=== PATIENT | female | born 1990 | race American Indian/Alaskan Native ===

== ENCOUNTER 2021-04-14 17:21 | Emergency (ER) | payer OTHER ==
--- NOTE | 2021-04-14 18:24 | Emergency Department Report ---
ED General Adult HPI - General Stated complaint: VAGINAL BLEEDING Time Seen by Provider: 04/14/21 18:19 - History of Present Illness Initial comments: 30-year-old -[place] female patient presents with complaints of vaginal bleeding in for the past 2 weeks. She states her last cycle was 03/31/2021. She reports 3+ test over the past 5 days. Patient is currently following with an PAINTER SKI EDGE and is scheduled to see him in 2 days. She is A6. She admits to mild lower abdominal cramping and urinary frequency without dysuria/hematuria, vaginal discharge/dyspareunia, or fever/chills/sweats. Past surgical history includes removal of both fallopian tube for an ectopic -: Sudden - Related Data Previous Rx's Medication Instructions Recorded Last Taken Type Ibuprofen [Motrin 800 MG tab] 800 mg PO Q8HR PRN #20 tablet 04/14/21 Unknown Rx Oxycodone HCl/Acetaminophen 1 each PO Q6H PRN #15 tablet 04/14/21 Unknown Rx [Oxycodone-Acetaminophen 10-325] Allergies Allergy/AdvReac Type Severity Reaction Status Date / Time No Known Allergies Allergy Verified 04/14/21 20:40 ED Review of Systems ROS: Stated complaint: VAGINAL BLEEDING Other details as noted in HPI Constitutional: denies: chills, diaphoresis, fever, malaise, weakness Respiratory: denies: cough, shortness of breath Cardiovascular: denies: chest pain Gastrointestinal: as per HPI. denies: nausea, vomiting Genitourinary: frequency. denies: urgency, dysuria, hematuria, discharge Neurological: denies: headache Hematological/Lymphatic: denies: easy bleeding ED Past Medical Hx - Medications Home Medications: Home Medications Medication Instructions Recorded Confirmed Last Taken Type Ibuprofen [Motrin 800 MG tab] 800 mg PO Q8HR PRN #20 tablet 04/14/21 Unknown Rx Oxycodone HCl/Acetaminophen 1 each PO Q6H PRN #15 tablet 04/14/21 Unknown Rx [Oxycodone-Acetaminophen 10-325] ED Physical Exam - General General appearance: alert, in no apparent distress - Head Head exam: Present: atraumatic, normocephalic - Eye Eye exam: Present: normal appearance - Respiratory Respiratory exam: Present: normal lung sounds bilaterally. Absent: respiratory distress - Cardiovascular Cardiovascular Exam: Present: regular rate, normal rhythm - GI/Abdominal GI/Abdominal exam: Present: soft, normal bowel sounds. Absent: distended, guarding, rebound, rigid - Extremities Exam Extremities exam: Present: full ROM - Back Exam Back exam: Absent: CVA tenderness (R), CVA tenderness (L) - Neurological Exam Neurological exam: Present: alert, oriented X3 - Psychiatric Psychiatric exam: Present: normal affect, normal mood - Skin Skin exam: Present: warm, dry, intact, normal color. Absent: rash ED Course Vital Signs 04/14/21 04/14/21 04/14/21 18:28 20:51 21:16 Temperature 98.4 F 97 F L Pulse Rate 73 86 Respiratory 20 18 18 Rate Blood Pressure 110/72 118/83 [Right] O2 Sat by Pulse 98 98 Oximetry 04/14/21 04/14/21 04/14/21 21:18 21:20 22:02 Temperature Pulse Rate 65 Respiratory 18 18 16 Rate Blood Pressure 99/66 [Right] O2 Sat by Pulse 100 Oximetry ED Medical Decision Making - Lab Data Result diagrams: 04/14/21 18:26 04/14/21 18:26 Lab Results 04/14/21 04/14/21 04/14/21 Range/Units 18:26 18:26 18:26 WBC 6.6 (4.5-11.0) K/mm3 RBC 4.02 (3.65-5.03) M/mm3 Hgb 11.7 (10.1-14.3) gm/dl Hct 33.7 (30.3-42.9) % MCV 84 (79-97) fl MCH 29 (28-32) pg MCHC 35 H (30-34) % RDW 13.9 (13.2-15.2) % Plt Count 261 (140-440) K/mm3 Lymph % (Auto) 28.6 (13.4-35.0) % [place] % (Auto) 10.0 H (0.0-7.3) % Eos % (Auto) 0.7 (0.0-4.3) % Baso % (Auto) 0.7 (0.0-1.8) % Lymph # (Auto) 1.9 (1.2-5.4) K/mm3 [place] # (Auto) 0.7 (0.0-0.8) K/mm3 Eos # (Auto) 0.0 (0.0-0.4) K/mm3 Baso # (Auto) 0.0 (0.0-0.1) K/mm3 Seg Neutrophils % 60.0 (40.0-70.0) % Seg Neutrophils # 3.9 (1.8-7.7) K/mm3 Sodium 136 L (137-145) mmol/L Potassium 4.4 (3.6-5.0) mmol/L Chloride 102.3 (98-107) mmol/L Carbon Dioxide 23 (22-30) mmol/L Anion Gap 15 mmol/L BUN 7 (7-17) mg/dL Creatinine 0.5 L (0.6-1.2) mg/dL Estimated GFR > 60 ml/min BUN/Creatinine Ratio 14 % Glucose 95 (65-100) mg/dL Calcium 9.4 (8.4-10.2) mg/dL Total Bilirubin 0.20 (0.1-1.2) mg/dL AST 15 (5-40) units/L ALT 7 (7-56) units/L Alkaline Phosphatase 68 (35-129) units/L Total Protein 7.7 (6.3-8.2) g/dL Albumin 4.2 (3.9-5) g/dL Albumin/Globulin Ratio 1.2 % HCG, Quant 7747 H (0-4) mIU/mL Urine Color (Yellow) Urine Turbidity (Clear) Urine pH (5.0-7.0) Ur Specific [place] (1.003-1.030) Urine Protein (Negative) mg/dL Urine Glucose (UA) (Negative) mg/dL Urine Ketones (Negative) mg/dL Urine Blood (Negative) Urine Nitrite (Negative) Urine Bilirubin (Negative) Urine Urobilinogen (<2.0) mg/dL Ur Leukocyte Esterase (Negative) Urine WBC (Auto) (0.0-6.0) /HPF Urine RBC (Auto) (0.0-6.0) /HPF U Epithel Cells (Auto) (0-13.0) /HPF Urine Bacteria (Auto) (Negative) /HPF Urine Mucus /HPF Blood Type 04/14/21 04/14/21 Range/Units 18:36 20:20 WBC (4.5-11.0) K/mm3 RBC (3.65-5.03) M/mm3 Hgb (10.1-14.3) gm/dl Hct (30.3-42.9) % MCV (79-97) fl MCH (28-32) pg MCHC (30-34) % RDW (13.2-15.2) % Plt Count (140-440) K/mm3 Lymph % (Auto) (13.4-35.0) % [place] % (Auto) (0.0-7.3) % Eos % (Auto) (0.0-4.3) % Baso % (Auto) (0.0-1.8) % Lymph # (Auto) (1.2-5.4) K/mm3 [place] # (Auto) (0.0-0.8) K/mm3 Eos # (Auto) (0.0-0.4) K/mm3 Baso # (Auto) (0.0-0.1) K/mm3 Seg Neutrophils % (40.0-70.0) % Seg Neutrophils # (1.8-7.7) K/mm3 Sodium (137-145) mmol/L Potassium (3.6-5.0) mmol/L Chloride (98-107) mmol/L Carbon Dioxide (22-30) mmol/L Anion Gap mmol/L BUN (7-17) mg/dL Creatinine (0.6-1.2) mg/dL Estimated GFR ml/min BUN/Creatinine Ratio % Glucose (65-100) mg/dL Calcium (8.4-10.2) mg/dL Total Bilirubin (0.1-1.2) mg/dL AST (5-40) units/L ALT (7-56) units/L Alkaline Phosphatase (35-129) units/L Total Protein (6.3-8.2) g/dL Albumin (3.9-5) g/dL Albumin/Globulin Ratio % HCG, Quant (0-4) mIU/mL Urine Color Red (Yellow) Urine Turbidity Hazy (Clear) Urine pH 7.0 (5.0-7.0) Ur Specific [place] 1.006 (1.003-1.030) Urine Protein 100 mg/dl (Negative) mg/dL Urine Glucose (UA) Neg (Negative) mg/dL Urine Ketones Neg (Negative) mg/dL Urine Blood Lg (Negative) Urine Nitrite Neg (Negative) Urine Bilirubin Neg (Negative) Urine Urobilinogen < 2.0 (<2.0) mg/dL Ur Leukocyte Esterase Neg (Negative) Urine WBC (Auto) 7.0 H (0.0-6.0) /HPF Urine RBC (Auto) 72.0 (0.0-6.0) /HPF U Epithel Cells (Auto) 4.0 (0-13.0) /HPF Urine Bacteria (Auto) 1+ (Negative) /HPF Urine Mucus Few /HPF Blood Type O POSITIVE - Radiology Data Radiology results: report reviewed ULTRASOUND OBSTETRIC INDICATION / CLINICAL INFORMATION: bleeding in early . HISTORY OF MULTIPLE MISCARRIAGES AND ECTOPIC PREGNANCIES. Moderate vaginal bleeding. Serum hCG level = 7747. Clinical Gestational Age (GA) in weeks, days: 4, 4 TECHNIQUE: Transabdominal and Transvaginal. COMPARISON: None available. FINDINGS: UTERUS: No intrauterine gestational sac or other findings and intrauterine . ADNEXA: Within the left adnexa, there is a gestational sac containing a yolk sac with a surrounding ring of soft tissue. Right ovary appears within normal limits. FREE FLUID: None. ADDITIONAL FINDINGS: None. IMPRESSION: 1. Probable left ectopic . 2. No intrauterine . - Medical Decision Making 30-year-old -[place] female patient presents with complaints of vaginal bleeding in for the past 2 weeks. She states her last cycle was 03/31/2021. She reports 3+ test over the past 5 days. Patient is currently following with an PAINTER [facility]I [facility]GE and is scheduled to see him in 2 days. She is A6. She admits to mild lower abdominal cramping and urinary frequency without dysuria/hematuria, vaginal discharge/dyspareunia, or fever/chills/sweats. Past surgical history includes removal of both fallopian tube for an ectopic Ultrasound shows left ovarian ectopic at 4 weeks 4 days. No free pelvic fluid is noted. Hemoglobin on CBC is normal. Beta hCG is 7700. Discussed patient in detail with Dr. Boyd, PAINTER [employer]. After reviewing patient's labs and ultrasound, she states patient may receive methotrexate here in the ED and follow-up in her office in 4 days for recheck. Patient given morp josiah, Zofran, Toradol, and Percocet here in ED. Her pain is controlled and her vitals remained stable. She states the bleeding remains light at this time. Discussed specific signs and symptoms in detail with patient that should prompt immediate return to the emergency department, she verbalizes understanding. Diagnosis and care plan also discussed in detail, patient is agreeable. Critical care attestation.: If time is entered above; I have spent that time in minutes in the direct care of this critically ill patient, excluding procedure time. ED Disposition Clinical Impression: Ectopic of left ovary Disposition: HOME / SELF CARE / HOMELESS Is pt being admited?: No Condition: Stable Instructions: Ectopic , Methotrexate Treatment for an Ectopic Prescriptions: Ibuprofen [Motrin 800 MG tab] 800 mg PO Q8HR PRN #20 tablet PRN Reason: pain Oxycodone HCl/Acetaminophen [Oxycodone-Acetaminophen 10-325] 1 each PO Q6H PRN #15 tablet PRN Reason: Pain , Severe (7-10) Referrals: KADE BOYD MD [Staff Physician] - 04/18/21 (Ectopic ) Forms: Work/School Release Form(ED)
[2021-04-14 18:38] LABS: Basophils % (Auto) 0.7 % (0.0-1.8); Eosinophils % (Auto) 0.7 % (0.0-4.3); Hematocrit 33.7 % (30.3-42.9); Hemoglobin 11.7 gm/dl (10.1-14.3); Lymphocytes # (Auto) 1.9 K/mm3 (1.2-5.4); Lymphocytes % (Auto) 28.6 % (13.4-35.0); Mean Corpuscular HGB Conc 35 % (30-34); Mean Corpuscular Volume 84 fl (79-97); Monocytes # (Auto) 0.7 K/mm3 (0.0-0.8); Platelet Count 261 K/mm3 (140-440); Red Blood Count 4.02 M/mm3 (3.65-5.03); Red Cell Distribution Width 13.9 % (13.2-15.2)
[2021-04-14 18:57] LABS: Bacteria,Urine 1+ /HPF (Negative); Bilirubin,Urine NEG (Negative); Blood,Urine LG (Negative); Color,Urine Red (Yellow); Mucus,Urine FEW /HPF; Urobilinogen,Urine < 2.0 mg/dL (<2.0)
[2021-04-14 18:59] LABS: Alanine Aminotransferase 7 units/L (7-56); Albumin 4.2 g/dL (3.9-5); Blood Urea Nitrogen 7 mg/dL (7-17); Calcium 9.4 mg/dL (8.4-10.2); Hemolysis Index 4
[2021-04-14 19:00] LABS: BUN/Creatinine Ratio 14
[2021-04-14] MEDS ORDERED: ONDANSETRON 4 MG/2 ML INJ ONE (20:35)
[2021-04-14] MEDS ORDERED: MORPHINE 4 MG/1 ML INJ ONE (20:35)
--- NOTE | 2021-04-14 20:36 | Ultrasound Report ---
ULTRASOUND OBSTETRIC INDICATION / CLINICAL INFORMATION: bleeding in early . HISTORY OF MULTIPLE MISCARRIAGES AND ECTOPIC PREGNANCIES. Moderate vaginal bleeding. Serum hCG level = 7747. Clinical Gestational Age (GA) in weeks, days: 4, 4 TECHNIQUE: Transabdominal and Transvaginal. COMPARISON: None available. FINDINGS: UTERUS: No intrauterine gestational sac or other findings and intrauterine . ADNEXA: Within the left adnexa, there is a gestational sac containing a yolk sac with a surrounding r ing of soft tissue. Right ovary appears within normal limits. FREE FLUID: None. ADDITIONAL FINDINGS: None. IMPRESSION: 1. Probable left ectopic . 2. No intrauterine . CRITICAL RESULT Time of Discovery (FRONT DESK PERSON/CDT): 7:25 PM Time of Communication (FRONT DESK PERSON/CDT): 7:30 PM Licensed Practitioner Receiving Report: PAT Hernandez in the ED Signer Name: Hilda Boston MD Signed: 04/14/2021 8:31 PM Workstation Name: [id number]
--- NOTE | 2021-04-14 20:36 | Ultrasound Report ---
ULTRASOUND OBSTETRIC INDICATION / CLINICAL INFORMATION: bleeding in early . HISTORY OF MULTIPLE MISCARRIAGES AND ECTOPIC PREGNANCIES. Moderate vaginal bleeding. Serum hCG level = 7747. Clinical Gestational Age (GA) in weeks, days: 4, 4 TECHNIQUE: Transabdominal and Transvaginal. COMPARISON: None available. FINDINGS: UTERUS: No intrauterine gestational sac or other findings and intrauterine . ADNEXA: Within the left adnexa, there is a gestational sac containing a yolk sac with a surrounding r ing of soft tissue. Right ovary appears within normal limits. FREE FLUID: None. ADDITIONAL FINDINGS: None. IMPRESSION: 1. Probable left ectopic . 2. No intrauterine . CRITICAL RESULT Time of Discovery (BAG MACHINE HELPER/CDT): 7:25 PM Time of Communication (BAG MACHINE HELPER/CDT): 7:30 PM Licensed Practitioner Receiving Report: PAT Hernandez in the ED Signer Name: Hilda Boston MD Signed: 04/14/2021 8:31 PM Workstation Name: [id number]
[2021-04-14] MEDS ORDERED: oxyCODONE /ACETAMINOPHEN 5-325MG TAB PO ONE (20:46)
[2021-04-14] MEDS: KETOROLAC 30 MG/1 ML INJ IV ONE ×2 (21:18→21:20)
[2021-04-14 22:30] VITALS: BP 99/66
--- NOTE | 2021-04-17 13:58 | Event Note ---
Charge nurse informed me that patient called because oxycodone prescription was not filled. . I am familiar with the patient's case. My colleague LUIS Freddy presented the case to me. We confirmed the dose of methotrexate. I spoke with Liane per phone. She has been in severe pain. 10 out of 10 worse with movement for the last 3 days since she was discharged in emergency department. She informed me that pharmacy would not fill the prescription with an unrecognizable second signature. I provided a second signature as a supervising physician. I asked patient to return to emergency department for reexamination since she has very severe pain or recent diagnosis of ectopic .
== END 2021-04-15 01:30 | disposition home or self-care (01) ==
LOC: ED 17:21
DX: O00.202 Left ovarian pregnancy without intrauterine pregnancy (principal); Z3A.01 Less than 8 weeks gestation of pregnancy
CPT/HCPCS: 36415; 76801; 76817; 80053; 81001; 84702; 85025; 86900; 86901; 96372; 96374; 99284; J1885; J2270; J2405; J9260